=== PATIENT | male | born 1955 | race Caucasian/White ===

== ENCOUNTER 2020-07-28 10:49 | Emergency (ER) | payer MEDICARE, OTHER ==
[2020-07-28] MEDS: Mupirocin Oint 22 GM Tube TOP ONE (11:23)
[2020-07-28] MEDS: Lidocaine 1% with EPINEPHrine 1:100,000 50 ML MDV INFILT ONE (11:23)
--- NOTE | 2020-07-29 06:40 | ER ---
REASON FOR EMERGENCY ROOM VISIT: Scalp laceration. HISTORY: This 65-year-old man was brought into the emergency room with his today for having slipped on the ice and fallen backwards, striking his occipital scalp on the ice. He states that he felt that it is possible he lost consciousness for perhaps 1 or 2 seconds and he definitely had his "jones rung." He denies any numbness, weakness, nausea, or visual symptoms. He does have headache over the area where he sustained a blow to his occipital scalp with underlying laceration. He bled quite a bit and his brought him in to have this scalp laceration evaluated. PAST MEDICAL HISTORY: Reviewed. He has a history of hypertension. MEDICATIONS: Lisinopril 10 mg p.o. daily. ALLERGIES: SULFA. REVIEW OF SYSTEMS: Pertinent positives and negatives as listed in the HPI. It should be noted that his last tetanus booster was 7 or 8 years ago. PHYSICAL EXAMINATION: GENERAL: Physical examination reveals a pleasant man who is in no acute distress. HEENT: He has had 2 lacerations, one of which is 5 cm long, somewhat obliquely oriented on his occipital scalp. It measures 5 cm in length and goes down into the subcutaneous tissue. There is no bony crepitus beneath this. He has this smaller more superficial laceration that still goes into the subcutaneous tissue. It is somewhat serpiginous in its configuration and is located somewhat parallel to the larger laceration. The longer laceration measures 5 cm. The smaller laceration 3 cm in length. NEUROLOGIC EXAMINATION: He is alert and oriented x3. Pupils equally round, reactive to light. He responds to all commands. Cranial nerves 2 through 12 are intact. Muscle strength, bulk, and tone are symmetrical and normal bilaterally in the upper and lower extremities. Deep tendon reflexes are symmetrical bilaterally. Sensation is intact to crude touch. Station and gait were not tested. EMERGENCY ROOM COURSE: I recommended stapling of this and explained the risks, goals, and alternatives. They agreed with this. The area was scrubbed with Betadine and water and approximately 7 mL of 1% Xylocaine with epinephrine was used for local anesthesia. The skin edges were approximated with stainless steel georgette, approximately 9 of these were required. Hemostasis was satisfactory. Antibiotic ointment was applied over this. IMPRESSION: Scalp lacerations as described above. PLAN: He should have these removed in 1 week. I discussed symptoms and signs of infection and reviewed with him symptoms and signs of any significant underlying concerns regarding closed head injury. They were given a fact sheet to take home with them to use as a guide. Certainly, if any concerns arise, or any questions arise, they should give us a call. All questions were answered. They understand and agree with this plan. SHANIA /[id number]
== END 2020-07-28 11:45 | disposition home or self-care (01) ==
LOC: LB.ED 10:49
DX: S01.01XA Laceration without foreign body of scalp, initial encounter (principal); I10 Essential (primary) hypertension; Z88.2 Allergy status to sulfonamides; Z79.899 Other long term (current) drug therapy; W00.0XXA Fall on same level due to ice and snow, initial encounter
CPT/HCPCS: 12004; 99282; 99282-25